=== PATIENT | male | born 1955 | race Caucasian/White ===

== ENCOUNTER 2020-06-26 12:09 | Outpatient (REF) | payer OTHER, SELFPAY ==
[2020-06-26 13:43] LABS: MANUAL DIFF FLAG NO
[2020-06-26 13:49] LABS: Basophils Percent Auto 0.9 % (0-2); Eosinophils Absolute Auto 0.2 X10*3/uL (0.0-0.4); Eosinophils Percent Auto 3.6 % (0-4); Hematocrit 39.1 % (42-52); Hemoglobin 13.5 g/dl (14.0-18.0); Imm Gran Abs Auto 0.01 X10*3/uL (0.00-0.03); Imm Gran Pct Auto 0.2 % (0.0-0.4); Lymphocytes Absolute Auto 1.6 X10*3/uL (1.2-4.9); Lymphocytes Percent Auto 36.1 % (20-40); Mean Corpuscular HGB Conc 34.5 g/dl (31.0-36.0); Mean Corpuscular Hemoglobin 31.8 pg (27.0-33.0); Mean Corpuscular Volume 92.2 fL (80-98); Mean Platelet Volume 10.8 fL (9.4-12.4); Monocytes Absolute Auto 0.3 X10*3/uL (0.1-1.2); Monocytes Percent Auto 7.2 % (2-11); Neutrophils Absolute Auto 2.3 X10*3/uL (2.0-8.3); Platelet Count 197 X10*3/uL (160-400); Red Blood Count 4.24 X10*6/uL (4.60-5.80); Red Cell Distribution Width 12.1 % (11.0-16.0); White Blood Count 4.4 X10*3/uL (4.8-10.8)
[2020-06-26 14:32] LABS: T4 Thyroxine 7.6 ug/dL (4.5-12.0); Thyroid Stimulating Hormone 1.86 uIU/mL (0.32-4.0)
[2020-06-29 00:12] LABS: Gliadin Deamidated IgA Ab 5 Units; Gliadin Deamidated IgG Ab 2 Units
[2020-07-02 23:32] LABS: Transglutaminase Ab IgG 3 U/mL; Transglutaminase IgA 2 U/mL
== END 2020-06-26 12:10 | disposition home or self-care (01) ==
LOC: HO.10HDL 12:09
PROVIDERS: Visit Provider Internal Medicine Gastroenterology
DX: R19.4 Change in bowel habit (principal)
CPT/HCPCS: 36415; 83516; 84436; 84443; 85025

== ENCOUNTER 2020-07-12 11:12 | Day surgery (SDC) | payer OTHER, SELFPAY ==
[2020-07-09 10:25] VITALS: BMI 22.0
--- NOTE | 2020-07-10 14:05 | HO.ANESPROP2 ---
Documented by User: Nasreen Wyman 07/10/20 14:05 HPI - Anesthesia Eval Consult details Narrative: 64yo M for Colonoscopy [facility] Past Medical History Medical History Anemia COVID-19 vaccine administered Depression Hx of renal calculi Surgical History Surgical History H/O colonoscopy Social History Social History Are you a primary human services care specialist to a significant other at home: No Do you presently have visiting nurse or other home services: No Smoking Status: Never smoker Use of substances other than those prescribed or required for medical reasons: No Have you been hit, kicked, punched, or otherwise hurt by someone within the past year? If so, by whom?: No Advance Directives Information Provided: No Recently lost weight without trying: No Meds Allergies Allergy/AdvReac Type Severity Reaction Status Date / Time No Known Allergies Allergy Verified 07/09/20 10:28 Home Medications Medication Instructions Recorded Confirmed Last Taken Type citalopram 30 mg PO DAILY 07/09/20 07/09/20 Unknown History zolpidem 10 mg PO BEDTIME PRN 07/09/20 07/09/20 Unknown History Exam Exam Date and Time: July 10, 2020 1405 Height,Weight and Vital Signs: Height 5 ft 8 in Weight 65.771 kg Pertinent Lab Results Pertinent Lab Results: Laboratory Tests 06/26/20 12:30 WBC 4.4 L Hgb 13.5 L Hct 39.1 L Plt Count 197 Assessment and Plan Assessment Anesthesia Assessment: Chart Reviewed Documented by User: Yaa Duron 07/12/20 12:42 [facility] Past Medical History Medical History Anemia COVID-19 vaccine administered Depression Hx of renal calculi Surgical History Surgical History H/O colonoscopy Social History Social History Are you a primary human services care specialist to a significant other at home: No Do you presently have visiting nurse or other home services: No Smoking Status: Never smoker Use of substances other than those prescribed or required for medical reasons: No Have you been hit, kicked, punched, or otherwise hurt by someone within the past year? If so, by whom?: No Advance Directives Information Provided: No Recently lost weight without trying: No Meds Allergies Allergy/AdvReac Type Severity Reaction Status Date / Time No Known Allergies Allergy Verified 07/09/20 10:28 Home Medications Medication Instructions Recorded Confirmed Last Taken Type citalopram 30 mg PO DAILY 07/09/20 07/09/20 Unknown History zolpidem 10 mg PO BEDTIME PRN 07/09/20 07/09/20 Unknown History Exam Airway Mallampati Class: I TM Dist: >3cm Neck ROM: Full Loose/Missing/Broken Teeth: No Heart: RRR Lungs: CTA Assessment and Plan Assessment Anesthesia Assessment: Anesthesia Plan Discussed and Chart Reviewed Final Anesthetic Review NPO: Yes ASA Class: II Final Preanesthetic Review: Meds/Allgs Chart Reviewed, Consent Obtained/Reviewed and Anes Risks/Benef Reviewed Patient Risk: Low Procedure Risk: Low Anesthetic Plan Anesthetic Plan: MAC: Disposition: Standard PACU
[2020-07-12 11:52] VITALS: BP 123/64; PULSE 56; RESP 16; TEMP 36.5; O2SAT 98
--- NOTE | 2020-07-12 12:23 | MHC.SHP ---
Pre-Procedural Eval Section A The patient is an INPATIENT: No Changes since office visit: No Cold of Flu in the past 2 weeks, No New Medical Problems, No Changes in Medication and No Patient answered all questions The History & Physical has been completed within 30 days and I have reviewed it.: Yes Section B Chief Complaint: change in bowels Allergies: Allergies Allergy/AdvReac Type Severity Reaction Status Date / Time No Known Allergies Allergy Verified 07/09/20 10:28 Plan I have reviewed the history and physical and performed a pertinent physical examination on my patient. No changes have occurred unless specified.
--- NOTE | 2020-07-12 12:51 | PM.OP ---
Brief Operative Note Date of Service: 07/12/20 Pre-op diagnosis: change in bowels Post-op diagnosis: same Procedure: colonoscopy Surgeon: Juan Diego Vital Anesthesia: MAC Estimated blood loss (mL): 2 Pathology: other Condition: stable Disposition: PACU
[2020-07-12 12:53] VITALS: BP 86/51; PULSE 54; RESP 16; TEMP 36.4; O2SAT 97
[2020-07-12 12:56] VITALS: BP 100/58; PULSE 51; RESP 16; O2SAT 99
--- NOTE | 2020-07-12 13:02 | OP_ITS ---
SURGEON: Juan Diego Vital MD PREOPERATIVE DIAGNOSIS: POSTOPERATIVE DIAGNOSIS: PROCEDURE PERFORMED: Colonoscopy to the terminal ileum with biopsy. ESTIMATED BLOOD LOSS: COMPLICATIONS: ANESTHESIA: ASSISTANTS: SPECIMENS: INDICATION: Change in bowel habits. MEDICATIONS: Monitored anesthesia care. DESCRIPTION OF PROCEDURE: History and physical performed. The risks and benefits of the procedure were explained to the patient. Informed consent was obtained. The patient was placed in the left lateral decubitus position. A digital rectal exam was performed and was found to be normal. The Olympus pediatric video colonoscope was introduced into the rectum and advanced to the cecum without difficulty. The cecum was identified by transillumination, palpation, and identification of ileocecal valve. Examination was performed and the scope was removed. He tolerated the procedure well and returned to recovery area in stable condition. FINDINGS: The terminal ileum was examined and appeared normal. The visualized colonic mucosa was normal. The quality of prep was good. No polyps were identified. Random sigmoid biopsies were obtained because of the patient's symptoms. Retroflexed examination showed small internal hemorrhoids. IMPRESSION: Normal colonoscopy. RECOMMENDATIONS: 1. Follow up the biopsy results. 2. Repeat colonoscopy is recommended in 10 years for average risk individuals. MD TERRELL Belcher/MILEY / [id number]
[2020-07-12 13:08] VITALS: BP 104/71; PULSE 56; RESP 16; TEMP 36.4; O2SAT 100
[2020-07-12 13:22] VITALS: BP 118/60; PULSE 51; RESP 16; O2SAT 100
== END 2020-07-12 14:00 | disposition home or self-care (01) ==
PROVIDERS: Visit Provider Internal Medicine Gastroenterology
PROC: 0DJD8ZZ Inspection of Lower Intestinal Tract, Via Natural or Artificial Opening Endoscopic (ICD-10-PCS; CPT 45378; principal; 2020-07-12 12:40)
DX: R19.4 Change in bowel habit (principal); K64.8 Other hemorrhoids
CPT/HCPCS: 45380; 88305

== ENCOUNTER 2022-09-17 07:01 | Outpatient (REF) | payer MEDICARE, SELFPAY ==
--- NOTE | ~2022-09-17 | CT_ITS ---
EXAMINATION: CT ABDOMEN AND PELVIS WITH CONTRAST CLINICAL INFORMATION: Diarrhea with early satiety and weight loss. COMPARISON: None available. TECHNIQUE: Multidetector volumetric images were obtained from the superior aspect of the liver through the pubic symphysis following administration 85 mL of Omnipaque 350 intravenous contrast. Sagittal and coronal reformatted images were obtained on the technologist's workstation. Oral contrast: No This CT examination was performed using dose optimization techniques as appropriate, variously including the following: *Automated exposure control *Adjustment of mA and/or kV according to patient size (this includes techniques or standardized protocols for targeted exams where dose is matched to indication/reason for exam; i.e. extremities or head) *Use of iterative reconstruction technique DLP: 293 mGy-cm FINDINGS: LUNG BASES: The visualized lung bases are unremarkable. LIVER, GALLBLADDER, AND BILIARY TREE: The liver is normal in size, shape, and attenuation. No focal hepatic lesion or biliary ductal dilatation is present. The gallbladder is unremarkable with no evidence of radiopaque gallstones, gallbladder wall thickening, or obvious pericholecystic inflammatory changes. PANCREAS: Unremarkable. SPLEEN: Unremarkable. ADRENAL GLANDS: Unremarkable. KIDNEYS AND URETERS: The kidneys are normal in size, shape, and attenuation. No hydronephrosis, hydroureter, or calculi seen. A benign 3 cm left upper pole Bosniak class I renal cyst is noted which requires no additional imaging or follow up. A few smaller similar cysts are present in the left kidney. No solid renal masses are seen. BLADDER: Unremarkable. GASTROINTESTINAL TRACT: Stomach appears very thick-walled near the gastric fundus and body. The small and large bowel are unremarkable. The appendix is not seen with certainty but there is no evidence of appendicitis. ABDOMINAL WALL: Small bilateral inguinal hernias are seen containing only fat, right greater than left. LYMPH NODES: No retroperitoneal lymphadenopathy. VASCULAR: Unremarkable. PELVIC VISCERA: There is minimal prominence of the prostate. Seminal vesicles appear normal. OSSEOUS STRUCTURES: Unremarkable. CT/CT abdomen pelvis w IV con IMPRESSION: 1. A definitive cause for the patient's diarrhea, early satiety and weight loss has not been found. 2. The stomach appears thick-walled which may be due to underdistention. However, given the clinical history, further evaluation with an upper GI or upper endoscopy would be of value. 3. Other incidental findings described above. Fleischner guidelines were followed.
[2022-09-17] MEDS: iohexoL 350 MG/ML 100 ML INFUS..BTL IV (10:27)
[2022-09-17] MEDS: Barium Sulfate Oral (Vanilla) 450 ML ORAL.SUSP 900 ML PO (10:28)
== END 2022-09-17 07:02 | disposition home or self-care (01) ==
LOC: HO.CT 07:01
PROVIDERS: PCP Nurse Practitioner Family; Visit Provider Internal Medicine Gastroenterology
DX: R19.7 Diarrhea, unspecified (principal); R68.81 Early satiety
CPT/HCPCS: 74177; Q9967

== ENCOUNTER 2022-09-18 10:38 | Day surgery (SDC) | payer MEDICARE, SELFPAY ==
--- NOTE | 2022-09-17 09:51 | HO.ANESPROP2 ---
Documented by User: Nasreen Wyman NP 09/17/22 09:53 HPI - Anesthesia Eval Consult details Narrative: 66yo M for Upper Endoscopy [facility] Past Medical History Medical History Anemia Anxiety and depression COVID-19 vaccine administered Depression Hx of renal calculi Surgical History Surgical History (Updated 09/18/22 @ 12:03 by Helena Harrison MD) H/O bilateral cataract extraction H/O colonoscopy Social History Social History Are you a primary after school caregiver to a significant other at home: No Do you presently have visiting nurse or other home services: No Patient Tobacco Use Status: Never used Tobacco Use of substances other than those prescribed or required for medical reasons: No Are you DNR?: No Advance Directives: No Advance Directives Information Provided: Yes Meds Allergies Allergy/AdvReac Type Severity Reaction Status Date / Time No Known Allergies Allergy Verified 07/09/20 10:28 Home Medications Medication Instructions Recorded Confirmed Last Taken Type zolpidem 10 mg tablet 10 mg PO BEDTIME PRN insomnia 07/09/20 09/18/22 Unknown History citalopram 20 mg tablet PO 09/18/22 09/18/22 Unknown History Exam Exam Date and Time: September 17, [id number] Documented by User: Helena Harrison MD 09/18/22 12:05 [facility] Past Medical History Medical History Anemia Anxiety and depression COVID-19 vaccine administered Depression Hx of renal calculi Family History Family history of problems with anesthesia: No Surgical History Surgical History (Updated 09/18/22 @ 12:03 by Helena Harrison MD) H/O bilateral cataract extraction H/O colonoscopy History of Problems with Anesthesia: No Social History Social History Are you a primary after school caregiver to a significant other at home: No Do you presently have visiting nurse or other home services: No Patient Tobacco Use Status: Never used Tobacco Use of substances other than those prescribed or required for medical reasons: No Are you DNR?: No Advance Directives: No Advance Directives Information Provided: Yes Meds Allergies Allergy/AdvReac Type Severity Reaction Status Date / Time No Known Allergies Allergy Verified 07/09/20 10:28 Home Medications Medication Instructions Recorded Confirmed Last Taken Type zolpidem 10 mg tablet 10 mg PO BEDTIME PRN insomnia 07/09/20 09/18/22 Unknown History citalopram 20 mg tablet PO 09/18/22 09/18/22 Unknown History Exam Height,Weight and Vital Signs: Height 5 ft 8 in Weight 61.689 kg Vital Signs Temp Pulse Resp BP Pulse Ox O2 Del Method 09/18/22 11:05 97.1 F 56 18 118/64 97 Room Air Airway Mallampati Class: I TM Dist: >3cm Neck ROM: Full Loose/Missing/Broken Teeth: Yes (Missing teeth- 1 bottom right, 1 bottom left) Heart: RRR Lungs: CTAB Assessment and Plan Assessment Anesthesia Assessment: Anesthesia Plan Discussed and Chart Reviewed Final Anesthetic Review Family History of Problems with Anesthesia: No History of Problems with Anesthesia: No NPO: Yes ASA Class: II Final Preanesthetic Review: No Changes in Pt Med Stat, Meds/Allgs Chart Reviewed, Consent Obtained/Reviewed and Anes Risks/Benef Reviewed Patient Risk: Low Procedure Risk: Low Assessment/Block/Sedation in SS: Assess/Block/Sedation-SS Anesthetic Plan Anesthetic Plan: MAC: Disposition: Standard PACU
[2022-09-18 10:48] VITALS: BMI 20.7
[2022-09-18 11:05] VITALS: BP 118/64; PULSE 56; RESP 18; TEMP 36.2; O2SAT 97
[2022-09-18] MEDS: Lactated Ringers 1,000 ML 100 ML IVCONT (11:26)
--- NOTE | 2022-09-18 12:20 | MHC.SHP ---
Pre-Procedural Eval Section A Date of Service: 09/18/22 The patient is an INPATIENT: No Changes since office visit: No Cold of Flu in the past 2 weeks, No New Medical Problems, No Changes in Medication and No Patient answered all questions The History & Physical has been completed within 30 days and I have reviewed it.: Yes Section B Chief Complaint: diarrhea,abnormal weight loss,early satiety Allergies: Allergies Allergy/AdvReac Type Severity Reaction Status Date / Time No Known Allergies Allergy Verified 07/09/20 10:28 Plan I have reviewed the history and physical and performed a pertinent physical examination on my patient. No changes have occurred unless specified. Time Spent With Patient Time: Total time managing care of this patient today ____ minutes.
[2022-09-18 12:47] VITALS: BP 118/66; PULSE 64; RESP 16; TEMP 36.1; O2SAT 98
--- NOTE | 2022-09-18 12:51 | PM.OP ---
Brief Operative Note Date of Service: 09/18/22 Pre-op diagnosis: see H&P no changes Post-op diagnosis: same Procedure: egd Surgeon: Juan Diego Vital Anesthesia: MAC Was an Computer Laboratory Technician used for this Procedure?: No Estimated blood loss (mL): 2 Pathology: other Condition: stable Disposition: PACU
[2022-09-18 13:02] VITALS: BP 150/93; PULSE 64; RESP 16; O2SAT 98
[2022-09-18 13:17] VITALS: BP 156/90; PULSE 57; RESP 16; TEMP 36.1; O2SAT 99
--- NOTE | 2022-09-18 23:31 | OP_ITS ---
DATE OF SERVICE: 09/18/2022 SURGEON: Juan Diego Vital MD INDICATIONS: Abdominal pain and weight loss. PREOPERATIVE DIAGNOSIS: POSTOPERATIVE DIAGNOSIS: PROCEDURE PERFORMED: Upper endoscopy with biopsy. ESTIMATED BLOOD LOSS: COMPLICATIONS: ANESTHESIA: Monitored anesthesia care. ASSISTANTS: SPECIMENS: DESCRIPTION OF PROCEDURE: History and physical performed. The risks and benefits of the procedure explained to the patient. Informed consent was obtained. The patient was placed in the left lateral decubitus position. The Olympus video gastroscope was introduced into the esophagus, stomach, and duodenum. Examination was performed. The scope was removed. He tolerated the procedure well and was taken to recovery room in stable condition. FINDINGS: 1. Esophagus: The esophagus showed no evidence of mass, lesions, or ulcerations. The EG junction was slightly irregular and biopsies were obtained. 2. Stomach: The stomach showed few streaks of clotted blood with no source was identified. The mucosa appeared normal. Antral biopsies were obtained to evaluate for H pylori. 3. Duodenum: The bulb and second portion were normal. Clear yellow bile was noted to drain from the major papilla, which was partially identified. Biopsies were obtained from the second portion to rule out malabsorption. IMPRESSION: Normal upper endoscopy. RECOMMENDATION: Follow up the biopsy results. MD TERRELL Belcher/LEANDRAL / [id number]
== END 2022-09-18 14:05 | disposition home or self-care (01) ==
PROVIDERS: PCP Nurse Practitioner Family; Visit Provider Internal Medicine Gastroenterology
PROC: 0DJ08ZZ Inspection of Upper Intestinal Tract, Via Natural or Artificial Opening Endoscopic (ICD-10-PCS; CPT 43235; principal; 2022-09-18 11:50)
DX: R10.9 Unspecified abdominal pain (principal); R19.7 Diarrhea, unspecified; R63.4 Abnormal weight loss; Z68.21 Body mass index [BMI] 21.0-21.9, adult; R68.81 Early satiety; K29.50 Unspecified chronic gastritis without bleeding; D64.9 Anemia, unspecified; G47.00 Insomnia, unspecified; F41.8 Other specified anxiety disorders; Z79.899 Other long term (current) drug therapy; Z87.442 Personal history of urinary calculi; Z86.16 Personal history of COVID-19
CPT/HCPCS: 43239; 88305; 88342; J2405

== ENCOUNTER 2022-10-27 06:30 | Day surgery (SDC) | payer MEDICARE, SELFPAY ==
--- NOTE | 2022-10-26 14:26 | HO.ANESPROP2 ---
Documented by User: Nasreen Wyman NP 10/26/22 14:26 HPI - Anesthesia Eval Consult details Narrative: 67yo M for Upper Endoscopy with Balloon Dilitation [facility] Past Medical History Medical History Anemia Anxiety and depression COVID-19 vaccine administered Depression Hx of renal calculi Insomnia Family History Family history of problems with anesthesia: No Surgical History Surgical History H/O bilateral cataract extraction H/O colonoscopy Hx of cystoscopy History of Problems with Anesthesia: No Social History Social History Are you a primary personal care service provider to a significant other at home: No Do you presently have visiting nurse or other home services: No Patient Tobacco Use Status: Never used Tobacco Meds Allergies Allergy/AdvReac Type Severity Reaction Status Date / Time No Known Allergies Allergy Verified 10/27/22 07:20 Home Medications Medication Instructions Recorded Confirmed Last Taken Type zolpidem 10 mg tablet 10 mg PO BEDTIME PRN insomnia 07/09/20 09/18/22 Unknown History citalopram 20 mg tablet PO 09/18/22 09/18/22 Unknown History lorazepam 0.5 mg tablet 0.5 - 1 mg PO DAILY PRN anxiety 10/26/22 10/26/22 Unknown History Exam Exam Date and Time: October 26, [id number] Assessment and Plan Assessment Anesthesia Assessment: Chart Reviewed Final Anesthetic Review Family History of Problems with Anesthesia: No History of Problems with Anesthesia: No Documented by User: Yaa Duron MD 10/27/22 08:08 [facility] Past Medical History Medical History Anemia Anxiety and depression COVID-19 vaccine administered Depression Hx of renal calculi Insomnia Surgical History Surgical History H/O bilateral cataract extraction H/O colonoscopy Hx of cystoscopy Social History Social History Are you a primary personal care service provider to a significant other at home: No Do you presently have visiting nurse or other home services: No Patient Tobacco Use Status: Never used Tobacco Meds Allergies Allergy/AdvReac Type Severity Reaction Status Date / Time No Known Allergies Allergy Verified 10/27/22 07:20 Home Medications Medication Instructions Recorded Confirmed Last Taken Type zolpidem 10 mg tablet 10 mg PO BEDTIME PRN insomnia 07/09/20 09/18/22 Unknown History citalopram 20 mg tablet PO 09/18/22 09/18/22 Unknown History lorazepam 0.5 mg tablet 0.5 - 1 mg PO DAILY PRN anxiety 10/26/22 10/26/22 Unknown History Exam Airway Mallampati Class: II TM Dist: >3cm Neck ROM: Full Loose/Missing/Broken Teeth: No Heart: RRR Lungs: CTA Assessment and Plan Assessment Anesthesia Assessment: Anesthesia Plan Discussed Final Anesthetic Review ASA Class: II Final Preanesthetic Review: Meds/Allgs Chart Reviewed, Consent Obtained/Reviewed and Anes Risks/Benef Reviewed Patient Risk: Low Procedure Risk: Intermediate Anesthetic Plan Anesthetic Plan: MAC: Disposition: Standard PACU
[2022-10-27 05:52] VITALS: BMI 21.5
[2022-10-27] MEDS: Lactated Ringers 1,000 ML 100 ML IVCONT (07:11)
[2022-10-27 07:18] VITALS: BP 127/72; PULSE 58; RESP 18; TEMP 36.4; O2SAT 97
--- NOTE | 2022-10-27 07:33 | MHC.SHP ---
Pre-Procedural Eval Section A Date of Service: 10/27/22 Section B Chief Complaint: Gastric intestinal metaplasia, unspecified Details of Present Illness: see H&P no changes Relevant Family History (Specify if Yes): No Relevant Social History: None Present Medications: None Medical History: Significant History History of Previous Operations: No relevant previous surgery Allergies: Allergies Allergy/AdvReac Type Severity Reaction Status Date / Time No Known Allergies Allergy Verified 10/27/22 07:20 Review of Systems Sugical H&P ROS: Negative: Constitution, Cardiovascular, Respiratory, Neurological, Psychiatric, Hem-Onc, Allergic/Immunologic, Gastrointestinal, Genitourinary, Musculoskeletal, Integumentary, Endocrine and Eyes/Ears/Nose/Throat Exam Surgical H&P Exam: Normal: HEENT, Normal: Heart, Normal: Lungs, Normal: Extremities, Normal: Abdomen, Normal: Skin and Normal: Neurological Plan Diagnosis/Plan: Unchanged I have reviewed the history and physical and performed a pertinent physical examination on my patient. No changes have occurred unless specified. Time Spent With Patient Time: Total time managing care of this patient today ____ minutes.
--- NOTE | 2022-10-27 08:04 | P.BOP_ITS ---
Brief Operative Note Date of Service: 10/27/22 Pre-op diagnosis: gastric intestinal metaplasia Surgeon: Juan Diego Vital Anesthesia: MAC Was an Shellfish Checker used for this Procedure?: No Estimated blood loss (mL): 5 Pathology: other Condition: stable Disposition: PACU
[2022-10-27 08:05] VITALS: BP 87/47; PULSE 58; RESP 18; TEMP 36.1; O2SAT 99
--- NOTE | 2022-10-27 08:19 | OP_ITS ---
DATE OF SERVICE: 10/27/2022 SURGEON: Juan Diego Vital MD INDICATIONS: Gastric intestinal metaplasia. PREOPERATIVE DIAGNOSIS: POSTOPERATIVE DIAGNOSIS: PROCEDURE PERFORMED: Upper endoscopy with biopsy and cauterization of gastric arteriovenous malformation. ESTIMATED BLOOD LOSS: COMPLICATIONS: ANESTHESIA: Monitored anesthesia care. ASSISTANTS: SPECIMENS: DESCRIPTION OF PROCEDURE: A history and physical were performed. The risks and benefits of the procedure were explained to the patient. Informed consent was obtained. The patient was placed in the left lateral decubitus position. The Olympus video gastroscope was introduced into the esophagus, stomach, and duodenum. Examination was performed. The scope was removed. He tolerated the procedure well and was taken to recovery in stable condition. FINDINGS: 1. Esophagus. The esophagus was normal. There was no esophagitis. 2. Stomach. The stomach showed no evidence of masses or ulcers. The mucosa appeared normal. In the upper stomach, near the cardia was a less than 5 mm AVM, which was oozing spontaneously. This was cauterized using the gold probe with excellent hemostasis. Biopsies were obtained from throughout the stomach because of the patient's history of gastric intestinal metaplasia according to standard protocol. There is no evidence of malignancy. 3. Duodenum, the bulb and second portion were normal. IMPRESSION: 1. Gastrointestinal metaplasia. 2. Gastric arteriovenous malformation, cauterized. RECOMMENDATION: Follow up the biopsy results. MD TERRELL Belcher/MILEY / [id number]
[2022-10-27 08:20] VITALS: BP 95/53; PULSE 51; RESP 14; O2SAT 99
[2022-10-27 08:35] VITALS: BP 116/62; PULSE 60; RESP 20; TEMP 36.3; O2SAT 98
== END 2022-10-27 09:38 | disposition home or self-care (01) ==
PROVIDERS: PCP Nurse Practitioner Family; Visit Provider Internal Medicine Gastroenterology
PROC: (CPT 43239; principal; 2022-10-27 07:30)
DX: K31.A0 Gastric intestinal metaplasia, unspecified (principal); Q27.33 Arteriovenous malformation of digestive system vessel; R19.7 Diarrhea, unspecified; R68.81 Early satiety; D64.9 Anemia, unspecified; R63.4 Abnormal weight loss; Z68.21 Body mass index [BMI] 21.0-21.9, adult; Z79.899 Other long term (current) drug therapy
CPT/HCPCS: 43239; 88305; 88342